=== PATIENT | male | born 2000 | race Hispanic/Latino ===

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

== ENCOUNTER 2022-03-21 18:04 | Emergency (ER) | payer OTHER ==
[~2022-03-21] VITALS: Ht 180.3 cm; Wt 127.0 kg
[2022-03-21 20:16] VITALS: BP 146/94
[2022-03-21] MEDS ORDERED: KETOROLAC 30MG VIAL (30MG/ML) IM ONE (20:30)
== END 2022-03-21 20:42 | disposition home or self-care (01) ==
LOC: EDH 18:04
DX: S61.012A Laceration without foreign body of left thumb without damage to nail, initial encounter (principal); X58.XXXA Exposure to other specified factors, initial encounter; Y93.89 Activity, other specified; Y92.89 Other specified places as the place of occurrence of the external cause; Y99.8 Other external cause status
CPT/HCPCS: 99283; 96372; J1885

== ENCOUNTER 2023-01-12 13:46 | Emergency (ER) | payer OTHER ==
[~2023-01-12] VITALS: Ht 180.3 cm; Wt 127.0 kg
[2023-01-12 14:15] VITALS: BP 152/100; PULSE 77; RESP 16; O2SAT 100
[2023-01-12] MEDS ORDERED: CYCL-309 PO (14:52)
[2023-01-12] MEDS ORDERED: IBUP-2071 PO (14:52)
[2023-01-12] MEDS ORDERED: CYCLOBENZAPRINE HCL 10 MG TABLET PO ONE (15:00)
[2023-01-12] MEDS ORDERED: IBUPROFEN 800 MG TAB PO ONE (15:00)
== END 2023-01-12 15:06 | disposition home or self-care (01) ==
LOC: EDH 13:46
DX: G89.29 Other chronic pain (principal); M54.42 Lumbago with sciatica, left side; Z79.899 Other long term (current) drug therapy; Z98.890 Other specified postprocedural states

== ENCOUNTER 2024-04-01 21:36 | Emergency (ER) | payer SELFPAY ==
[~2024-04-01] VITALS: Ht 180.3 cm; Wt 140.6 kg
[~2024-04-01 21:36] MED LIST: CYCL-309 PO; IBUP-2071 PO
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
[2024-04-01] MEDS: TRIAMCINOLONE ACETONIDE 40 MG/ML 1ML VIAL IM ONE (22:24)
[2024-04-01] MEDS: ORPHENADRINE 60MG/2ML IM ONE (22:24)
[2024-04-01] MEDS: ketOROlac 60 MG VIAL (30MG/ML) IM ONE (22:25)
[2024-04-01] MEDS ORDERED: IBUP-2070 PO (23:26)
[2024-04-01] MEDS ORDERED: CYCL10TA16 PO (23:26)
[2024-04-01 23:33] VITALS: BP 148/88; PULSE 97; RESP 18; TEMP 98.5; O2SAT 97
--- NOTE | 2024-04-02 08:52 | HMCIMG ---
EXAM: LUMBAR SPINE 2-3VWS REASON: back pain. COMPARISON: None. TECHNIQUE: 3 views of the lumbar spine were obtained. FINDINGS: There is normal appearance of the lumbar vertebral bodies. Disc interspace heights are preserved. Alignment is normal. There are no visible fractures. Soft tissues appear unremarkable. IMPRESSION: 1. Normal lumbar spine.
== END 2024-04-01 23:34 | disposition home or self-care (01) ==
LOC: EDH 21:36
DX: G89.29 Other chronic pain (principal); M54.50 Low back pain, unspecified; Z79.899 Other long term (current) drug therapy
CPT/HCPCS: 99284; 72100; 96372 ×3; J1885; J3301; J2360